=== PATIENT | male | born 1985 | race Hispanic/Latino ===

== ENCOUNTER 2018-12-30 03:04 | Emergency (ER) | payer OTHER ==
[2018-12-30] MEDS ORDERED: NA CHLORIDE 0.9% 1,000 ML ONE (04:01)
[2018-12-30] MEDS ORDERED: ASPIRIN 81 MG CHEWABLE TABLET ONE (04:01)
[2018-12-30 04:27] LABS: Absolute Lymphocytes (CBC) 2.7 K/uL (0.7-4.9); Basophils % 0.5 % (0-1.3); Hematocrit 44.7 % (39.6-49.0); Lymphocytes % 33.3 % (15.3-44.8); MPV 9.2 fL (7.6-11.3); RBC Red Blood Cell Count 4.76 M/uL (4.33-5.43)
[2018-12-30 04:38] LABS: Barbiturates NEGATIVE (NEGATIVE); Benzodiazepines NEGATIVE (NEGATIVE); Cocaine NEGATIVE (NEGATIVE); METHAMPHETAM NEGATIVE (NEGATIVE); Methadone NEGATIVE (NEGATIVE); Opiates NEGATIVE (NEGATIVE); Phencyclidine NEGATIVE (NEGATIVE); THC Cannibis NEGATIVE (NEGATIVE)
[2018-12-30 04:41] LABS: Protime INR 1.11
[2018-12-30 04:42] LABS: Urine Blood NEGATIVE (NEG); Urine Glucose NEGATIVE (NEG); Urine Protein NEGATIVE (NEG); Urine pH 5.5 (5.0-7.0)
[2018-12-30 04:53] LABS: ALT/SGPT 19 U/L (12-78); AST/SGOT 16 U/L (15-37); Alkaline Phosphatase 90 U/L (45-117); BUN Blood Urea Nitrogen 21 mg/dL (7-18); Bicarbonate 23 mmol/L (21-32); Bilirubin Direct 0.1 mg/dL (0-0.2); Bilirubin Total 0.6 mg/dL (0.2-1.0); Glucose Level 95 mg/dL (74-106); Lipase 178 U/L (73-393); Magnesium 1.9 mg/dL (1.8-2.4); NT PRO-BNP 23 pg/mL (<125); Potassium 3.5 mmol/L (3.5-5.1); Protein, Total 6.9 g/dL (6.4-8.2); Sodium Level 141 mmol/L (136-145); Troponin (Emerg Dept Use Only) < 0.02 ng/mL (0.0-0.045)
--- NOTE | 2018-12-30 05:03 | ER ---
Nurse's Notes [facility] Name: Yovani Reddy Age: 33 yrs Sex: Male : 1985 Arrival Date: 12/30/2018 Time: 03:08 Bed 5 Private MD: Diagnosis: Dyspnea;Chest pain, unspecified Presentation: 12/30 03:24 Presenting complaint: Patient states: for the past week when he lays down at night he aa1 feels like he can't breathe and his heart is pounding and feels like it's beating irregularly. Denies CP. Transition of care: patient was not received from another setting of care. Onset of symptoms was December 23, 2018. Risk Assessment: Do you want to hurt yourself or someone else? Patient reports no desire to harm self or others. Initial Sepsis Screen: Does the patient meet any 2 criteria? No. Patient's initial sepsis screen is negative. Does the patient have a suspected source of infection? No. Patient's initial sepsis screen is negative. Care prior to arrival: None. 03:24 Method Of Arrival: Ambulatory aa1 03:24 Acuity: FELIX 3 aa1 Triage Assessment: 03:27 General: Appears in no apparent distress. comfortable. General: Appears Behavior is aa1 calm, cooperative, appropriate for age. Pain: Denies pain. Historical: - Allergies: 03:27 No Known Allergies; aa1 - Home Meds: 03:27 None [Active]; aa1 - PMHx: 03:27 None; aa1 - PSHx: 03:27 None; aa1 - Immunization history:: Flu vaccine is not up to date. - Social history:: Smoking status: Patient/guardian denies using tobacco. - Ebola Screening: : No symptoms or risks identified at this time. Screenin:29 Abuse screen: Denies threats or abuse. Denies injuries from another. Nutritional lp1 screening: No deficits noted. Tuberculosis screening: No symptoms or risk factors identified. Fall Risk None identified. Assessment: 04:15 General: Appears in no apparent distress. Behavior is calm, cooperative, appropriate lp1 for age. Pain: Complains of pain in chest. Neuro: Level of Consciousness is awake, alert, obeys commands, Oriented to person, place, time, situation. Cardiovascular: Reports chest pain, Patient's skin is warm and dry. Rhythm is sinus rhythm. Respiratory: Reports shortness of breath when laying flat Respiratory effort is even, unlabored, Respiratory pattern is regular, Breath sounds are clear bilaterally. GI: No signs and/or symptoms were reported involving the gastrointestinal system. : No signs and/or symptoms were reported regarding the genitourinary system. EENT: No signs and/or symptoms were reported regarding the EENT system. Derm: Skin is pink, warm \T\ dry. Musculoskeletal: Circulation, motion, and sensation intact. 05:15 Reassessment: Patient appears in no apparent distress at this time. No changes from lp1 previously documented assessment. Patient and/or family updated on plan of care and expected duration. Pain level reassessed. 06:16 Reassessment: Patient returned from CT at this time. lp1 07:10 Reassessment: Patient is alert, oriented x 3, equal unlabored respirations, skin aa5 warm/dry/pink. Patient denies pain at this time. Denies SOB. Denies any complaints at this time. Awaiting CT results, pt notified of wait time. . 07:31 Reassessment: Patient is alert, oriented x 3, equal unlabored respirations, skin aa5 warm/dry/pink. Vital Signs: 03:27 BP 116 / 80; Pulse 74; Resp 16; Temp 97.8; Pulse Ox 100% on R/A; Weight 92.99 kg; aa1 Height 5 ft. 11 in. (180.34 cm); Pain 0/10; 04:28 BP 124 / 79; Pulse 73; Resp 20; Pulse Ox 98% on R/A; lp1 05:00 BP 122 / 63; Pulse 68; Resp 18; Pulse Ox 98% on R/A; ea 06:36 BP 125 / 72; Pulse 60; Resp 18; Pulse Ox 100% on R/A; ea 07:10 BP 124 / 64; Pulse 62; Resp 18 S; Temp 98.0(TE); Pulse Ox 100% on R/A; Pain 0/10; aa5 03:27 Body Mass Index 28.59 (92.99 kg, 180.34 cm) aa1 ED Course: 03:08 Patient arrived in ED. ag3 03:26 Triage completed. aa1 03:27 Arm band placed on right wrist. aa1 03:30 Matty Braun MD is Attending Physician. savanna 03:48 Funmi Antoine, RN is Primary Nurse. lp1 04:05 Inserted saline lock: 20 gauge in right antecubital area, using aseptic technique. lp1 Blood collected. 04:18 XRAY Chest (1 view) In Process Unspecified. EDMS 04:29 Patient has correct armband on for positive identification. Placed in gown. Cardiac lp1 monitor on. Pulse ox on. NIBP on. 04:37 Radiology exam delayed due to lab results not completed at this time. (BUN/Creatinine). kw1 05:03 Nura Richards MD is Referral Physician. savanna 05:[address] lp1 06:28 CT Chest For PE Angio In Process Unspecified. EDMS 06:46 No provider procedures requiring assistance completed. lp1 07:31 IV discontinued, intact, bleeding controlled, No redness/swelling at site. Pressure aa5 dressing applied. Administered Medications: 04:00 Drug: Aspirin 162 mg Route: PO; lp1 05:00 Follow up: Response: No adverse reaction 04:05 Drug: NS 0.9% 1000 ml Route: IV; Rate: 1 bolus; Site: right antecubital; lp1 06:20 Follow up: IV Status: Completed infusion; IV Intake: 1000ml lp1 Intake: 06:20 IV: 1000ml; Total: 1000ml. lp1 Outcome: 05:03 Discharge ordered by . [facility] 07:32 Discharged to home ambulatory, with friend. aa5 07:32 Condition: stable 07:32 Discharge instructions given to patient, Instructed on discharge instructions, follow up and referral plans. medication usage, Demonstrated understanding of instructions, follow-up care, medications, Prescriptions given X 1. 07:34 Patient left the ED. aa5 Signatures: Dispatcher [employer] EDMS Tasia Garcia RN RN aa1 Matty Braun MD MD cha Calderon, Audri RN RN aa5 Funmi Antoine, AVIS ALBARRAN 1 Perla Clark RN RN Lourdes Linares kw1 Mona Doshi ag3
--- NOTE | 2018-12-30 05:04 | EDPHYS ---
Physician Documentation [facility] Name: Yovani Reddy Age: 33 yrs Sex: Male : 1985 Arrival Date: 12/30/2018 Time: 03:08 Bed 5 Private MD: ED Physician Matty Braun HPI: 12/30 03:47 This 33 yrs old Male presents to ER via Ambulatory with complaints of CAN NOT savanna BREATHE. 03:47 The patient has shortness of breath at rest, with light activity. Onset: The savanna symptoms/episode began/occurred 3 day(s) ago. Duration: The symptoms are continuous, and are unchanged since they started. The patient's shortness of breath has no apparent modifying factors. Associated signs and symptoms: The patient has no apparent associated signs or symptoms. Severity of symptoms: At their worst the symptoms were mild in the emergency department the symptoms are unchanged. The patient has not experienced similar symptoms in the past. Historical: - Allergies: 03:27 No Known Allergies; aa1 - Home Meds: 03:27 None [Active]; aa1 - PMHx: 03:27 None; aa1 - PSHx: 03:27 None; aa1 - Immunization history:: Flu vaccine is not up to date. - Social history:: Smoking status: Patient/guardian denies using tobacco. - Ebola Screening: : No symptoms or risks identified at this time. ROS: 03:48 Constitutional: Negative for fever, chills, and weight loss, Eyes: Negative for injury, savanna pain, redness, and discharge, ENT: Negative for injury, pain, and discharge, Neck: Negative for injury, pain, and swelling, Abdomen/GI: Negative for abdominal pain, nausea, vomiting, diarrhea, and constipation, Back: Negative for injury and pain, : Negative for injury, bleeding, discharge, and swelling, MS/Extremity: Negative for injury and deformity, Skin: Negative for injury, rash, and discoloration, Neuro: Negative for headache, weakness, numbness, tingling, and seizure, Psych: Negative for depression, anxiety, suicide ideation, homicidal ideation, and hallucinations, Allergy/Immunology: Negative for hives, rash, and allergies, Endocrine: Negative for neck swelling, polydipsia, polyuria, polyphagia, and marked weight changes, Hematologic/Lymphatic: Negative for swollen nodes, abnormal bleeding, and unusual bruising. 03:48 Cardiovascular: Positive for chest pain. 03:48 Respiratory: Positive for cough, shortness of breath, at rest. Exam: 03:48 Constitutional: This is a well developed, well nourished patient who is awake, alert, savanna and in no acute distress. Head/Face: Normocephalic, atraumatic. Eyes: Pupils equal round and reactive to light, extra-ocular motions intact. Lids and lashes normal. Conjunctiva and sclera are non-icteric and not injected. Cornea within normal limits. Periorbital areas with no swelling, redness, or edema. ENT: Nares patent. No nasal discharge, no septal abnormalities noted. Tympanic membranes are normal and external auditory canals are clear. Oropharynx with no redness, swelling, or masses, exudates, or evidence of obstruction, uvula midline. Mucous membranes moist. Neck: Trachea midline, no thyromegaly or masses palpated, and no cervical lymphadenopathy. Supple, full range of motion without nuchal rigidity, or vertebral point tenderness. No Meningismus. Chest/axilla: Normal chest wall appearance and motion. Nontender with no deformity. No lesions are appreciated. Cardiovascular: Regular rate and rhythm with a normal S1 and S2. No gallops, murmurs, or rubs. Normal PMI, no JVD. No pulse deficits. Respiratory: Lungs have equal breath sounds bilaterally, clear to auscultation and percussion. No rales, rhonchi or wheezes noted. No increased work of breathing, no retractions or nasal flaring. Abdomen/GI: Soft, non-tender, with normal bowel sounds. No distension or tympany. No guarding or rebound. No evidence of tenderness throughout. Back: No spinal tenderness. No costovertebral tenderness. Full range of motion. Male : Normal genitalia with no discharge or lesions. Skin: Warm, dry with normal turgor. Normal color with no rashes, no lesions, and no evidence of cellulitis. MS/ Extremity: Pulses equal, no cyanosis. Neurovascular intact. Full, normal range of motion. Neuro: Awake and alert, GCS 15, oriented to person, place, time, and situation. Cranial nerves II-XII grossly intact. Motor strength 5/5 in all extremities. Sensory grossly intact. Cerebellar exam normal. Normal gait. Psych: Awake, alert, with orientation to person, place and time. Behavior, mood, and affect are within normal limits. 03:49 Musculoskeletal/extremity: DVT Exam: No signs of deep vein thrombosis. no pain, no savanna swelling, no tenderness, negative Homans' sign noted on exam, no appreciated bluish discoloration, no erythema, no increased warmth. Vital Signs: 03:27 BP 116 / 80; Pulse 74; Resp 16; Temp 97.8; Pulse Ox 100% on R/A; Weight 92.99 kg; aa1 Height 5 ft. 11 in. (180.34 cm); Pain 0/10; 04:28 BP 124 / 79; Pulse 73; Resp 20; Pulse Ox 98% on R/A; lp1 05:00 BP 122 / 63; Pulse 68; Resp 18; Pulse Ox 98% on R/A; ea 06:36 BP 125 / 72; Pulse 60; Resp 18; Pulse Ox 100% on R/A; ea 07:10 BP 124 / 64; Pulse 62; Resp 18 S; Temp 98.0(TE); Pulse Ox 100% on R/A; Pain 0/10; aa5 03:27 Body Mass Index 28.59 (92.99 kg, 180.34 cm) aa1 MDM: 03:30 Patient medically screened. [facility] 03:49 Data reviewed: vital signs, nurses notes, lab test result(s), EKG, radiologic studies, [facility] CT scan, plain films. 12/30 03:47 Order name: Basic Metabolic Panel; Complete Time: 05:02 [facility] 12/30 03:47 Order name: CBC with Diff; Complete Time: 05:02 [facility] 12/30 03:47 Order name: LFT's; Complete Time: 05:02 [facility] 12/30 03:47 Order name: Magnesium; Complete Time: 05:02 [facility] 12/30 03:47 Order name: NT PRO-BNP; Complete Time: 05:02 [facility] 12/30 03:47 Order name: PT-INR; Complete Time: 05:02 [facility] 12/30 03:47 Order name: Troponin (emerg Dept Use Only); Complete Time: 05:02 [facility] 12/30 03:47 Order name: XRAY Chest (1 view) [facility] 12/30 03:47 Order name: Lipase; Complete Time: 05:02 [facility] 12/30 03:47 Order name: UDS; Complete Time: 05:02 [facility] 12/30 03:51 Order name: CT Chest For PE Angio [facility] 12/30 04:19 Order name: Urine Dipstick--Ancillary (enter results); Complete Time: 05:02 cm6 12/30 03:47 Order name: EKG; Complete Time: 03:49 [facility] 12/30 03:47 Order name: Cardiac monitoring; Complete Time: 04: [facility] 12/30 03:47 Order name: EKG - Nurse/Tech; Complete Time: 04: [facility] 12/30 03:47 Order name: IV Saline Lock; Complete Time: 04: [facility] 12/30 03:47 Order name: Labs collected and sent; Complete Time: 04: [facility] 12/30 03:47 Order name: O2 Per Protocol; Complete Time: 04: [facility] 12/30 03:47 Order name: O2 Sat Monitoring; Complete Time: 04:27 [facility] 12/30 03:47 Order name: Urine Dipstick-Ancillary (obtain specimen); Complete Time: 04:26 [facility] Administered Medications: 04:00 Drug: Aspirin 162 mg Route: PO; lp1 05:00 Follow up: Response: No adverse reaction ea 04:05 Drug: NS 0.9% 1000 ml Route: IV; Rate: 1 bolus; Site: right antecubital; lp1 06:20 Follow up: IV Status: Completed infusion; IV Intake: 1000ml lp1 Disposition: 12/30/18 05:03 Discharged to Home. Impression: Dyspnea, Chest pain, unspecified. - Condition is Stable. - Discharge Instructions: Nonspecific Chest Pain, Chest Wall Pain, Chest Wall Pain, Kqyk-[id number], Nonspecific Chest Pain, Jkwd-[id number], Aspirin and Your Heart. - Prescriptions for Pepcid 20 mg Oral Tablet - take 1 tablet by ORAL route every 12 hours for 10 days; 20 tablet. - Medication Reconciliation Form, Thank You Letter, Antibiotic Education, Prescription Opioid Use, Work release form form. - Follow up: Private Physician; When: 2 - 3 days; Reason: Recheck today's complaints, Continuance of care, Re-evaluation by your physician. Follow up: Nura Richards; When: 2 - 3 days; Reason: Recheck today's complaints, Re-evaluation by your physician. - Problem is new. - Symptoms have improved. Signatures: Dispatcher [employer] EDMS Tasia Garcia RN RN aa1 Matty Braun MD MD cha Calderon, Audri RN RN aa5 Funmi Antoine RN RN lp1 Perla Clark RN ea Corrections: (The following items were deleted from the chart) 07:34 05:03 12/30/2018 05:03 Discharged to Home. Impression: Dyspnea; Chest pain, aa5 unspecified. Condition is Stable. Discharge Instructions: Nonspecific Chest Pain, Chest Wall Pain, Chest Wall Pain, Ldpp-[id number], Nonspecific Chest Pain, Cpll-la-[id number], Aspirin and Your Heart. Prescriptions for Pepcid 20 mg Oral Tablet - take 1 tablet by ORAL route every 12 hours for 10 days; 20 tablet. and Forms are Medication Reconciliation Form, Thank You Letter, Antibiotic Education, Prescription Opioid Use. Follow up: Private Physician; When: 2 - 3 days; Reason: Recheck today's complaints, Continuance of care, Re-evaluation by your physician. Follow up: Nura Richards; When: 2 - 3 days; Reason: Recheck today's complaints, Re-evaluation by your physician. Problem is new. Symptoms have improved. savanna
--- NOTE | 2018-12-30 07:25 | EKG ---
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
--- NOTE | 2018-12-30 08:17 | RAD REPORT ---
EXAM DESCRIPTION: RAD - Chest Single View - 12/30/2018 4:17 am CLINICAL HISTORY: DYSPNEA Chest pain. COMPARISON: Chest For Pe Angio dated 12/30/2018 FINDINGS: Portable technique limits examination quality. The lungs are grossly clear. The heart is normal in size. No displaced fractures. IMPRESSION: No acute intrathoracic process suspected.
--- NOTE | 2018-12-30 10:45 | RAD REPORT ---
EXAM DESCRIPTION: CT Angiography Chest With Intravenous Contrast CLINICAL HISTORY: Chest pain;Cough TECHNIQUE: Axial computed tomographic angiography images of the chest with intravenous contrast in pulmonary embolism protocol. Sagittal and coronal reformatted images were created and reviewed. Sagittal and coronal reformatted images were created and reviewed. This CT exam was performed [facility] [place] one or more of the following dose reduction techniques: automated exposure control, adjustment of the mA and/or kV according to patient size, and/or use of iterative reconstruction technique. MIP reconstructed images were created and reviewed. COMPARISON: No relevant prior studies available. FINDINGS: Limitations: None. Pulmonary arteries: Unremarkable. No pulmonary embolism. Aorta: No significant abnormality noted. No thoracic aortic aneurysm. Lungs: Unremarkable. No mass. No consolidation. Pleural space: Unremarkable. No significant effusion. No pneumothorax. Heart: Unremarkable. No cardiomegaly. No significant pericardial effusion. No evidence of RV dysfunction. Bones/joints: No acute fracture. No dislocation. Soft tissues: Unremarkable. Lymph nodes: Unremarkable. No enlarged lymph nodes. IMPRESSION: No acute findings. Electronically signed by: Dilia Isbell MD 12/30/2018 6:48 AM CDT Due to temporary technical issues with the PACS/Fluency reporting system, reports are being signed by the in house radiologist as a courtesy to ensure prompt reporting. The interpreting radiologist is f ully responsible for the content of the report.
--- NOTE | 2018-12-30 12:21 | EKG ---
Test Date: 2018-12-30 Test Time: 04:22:54 Textile Screen Printer: ANTWON MEASUREMENT RESULTS: Intervals: Rate: 61 MI: 150 QRSD: 86 QT: 380 QTc: 382 [place]: P: 40 MI: 150 QRS: 31 T: 50 INTERPRETIVE STATEMENTS: Normal sinus rhythm Normal ECG Compared to ECG 12/30/2018 04:22:05 Sinus arrhythmia no longer present Electronically Signed On 12-30-18 12:20:21 CDT by Luis Manuel Veloz
== END 2018-12-30 07:34 | disposition home or self-care (01) ==
LOC: ER 03:04
DX: R07.9 Chest pain, unspecified (principal)
CPT/HCPCS: 96361; 93005 ×2; 85025; 80048; 36415; 83735; 85610; 80076; 80307 ×8; 81003; 84484; 83690; 83880; 71275; 71045; 96360; 99285; Q9967; J7030